=== PATIENT | male | born 1960 | race Caucasian/White ===

== ENCOUNTER 2018-07-26 00:02 | Emergency (ER) | payer BC, MEDICARE ==
[2018-07-26] MEDS ORDERED: KETOROLAC 30 MG/ML 1 ML VIAL IVP STA (00:28)
[2018-07-26] MEDS ORDERED: SODIUM CHLORIDE 0.9% 1,000 ML IV STA (00:28)
--- NOTE | 2018-07-26 00:32 | ED ---
General Adult HPI - General Source: patient Mode of arrival: wheelchair Limitations: no limitations <Ida Woody - Last Filed: 07/26/18 04:37> <Evette Bosch - Last Filed: 07/26/18 07:19> - General Chief complaint: Urogenital Stated complaint: Groin Pain Time Seen by Provider: 07/26/18 00:18 - History of Present Illness Initial comments: 57-year-old male patient presents to the emergency department today with complaints of left groin pain that radiates into the back. The patient states this is been going on for the last 3 days. States that the pain is constant. States it is severe. Does hurt worse with movement and pressing over the area. Patient denies any radiation of pain to the testicle. Denies any scrotal swelling. Denies any difficulty with urination including hematuria, dysuria, urinary urgency, or urinary frequency. Patient denies any nausea, vomiting, constipation, or diarrhea. Denies any fevers or chills with this. Denies any history of similar symptoms. States that he does have history of chronic low back pain but hasn't had pain medication for the last couple of years due to insurance reasons. States his usual back pain is different than this. Patient denies any recent rash, shortness breath, chest pain, numbness, tingling, dizziness, weakness, headache, visual changes, or any other complaints. (Ida Woody) - Related Data Home Medications Medication Instructions Recorded Confirmed ALPRAZolam [Xanax] 0.5 mg PO DAILY PRN 03/27/15 07/26/18 Metoprolol Tartrate [Lopressor] 50 mg PO BID 03/27/15 07/26/18 Simvastatin [Zocor] 40 mg PO HS 03/27/15 07/26/18 tiZANidine HCL 2 mg PO DAILY 03/27/15 07/26/18 Previous Rx's Medication Instructions Recorded Cyclobenzaprine [Flexeril] 10 mg PO TID #15 tab 07/26/18 Ibuprofen [Motrin] 600 mg PO Q8HR PRN #30 tab 07/26/18 Metoprolol Tartrate [Lopressor] 50 mg PO BID #60 tab 07/26/18 Allergies Allergy/AdvReac Type Severity Reaction Status Date / Time No Known Allergies Allergy Verified 03/27/15 09:55 Review of Systems ROS Other: All systems not noted in ROS Statement are negative. <Ida Woody M - Last Filed: 07/26/18 04:37> ROS Other: All systems not noted in ROS Statement are negative. <HiroEvette P - Last Filed: 07/26/18 07:19> ROS Statement: Those systems with pertinent positive or pertinent negative responses have been documented in the HPI. Past Medical History Past Medical History: Hyperlipidemia, Hypertension Additional Past Medical History / Comment(s): chronic back pain History of Any Multi-Drug Resistant Organisms: None Reported Past Surgical History: Orthopedic Surgery Additional Past Surgical History / Comment(s): shoulder surgery Past Psychological History: Bipolar, Depression, Panic Disorder Smoking Status: Current every day smoker Past Alcohol Use History: Rare Past Drug Use History: None Reported <Ida Woody M - Last Filed: 07/26/18 04:37> General Exam Limitations: no limitations General appearance: alert, in no apparent distress, other (This is a well- developed, well-nourished adult male patient in no acute distress. Vital signs upon presentation are temperature 98.5F, pulse 86, respirations 20, blood pressure 176/114, pulse ox 96% on room air.) Eye exam: Present: normal appearance, PERRL, EOMI. Absent: scleral icterus, conjunctival injection, periorbital swelling ENT exam: Present: normal exam, normal oropharynx, mucous membranes moist Respiratory exam: Present: normal lung sounds bilaterally. Absent: respiratory distress, wheezes, rales, rhonchi, stridor Cardiovascular Exam: Present: regular rate, normal rhythm, normal heart sounds. Absent: systolic murmur, diastolic murmur, rubs, gallop, clicks GI/Abdominal exam: Present: soft, tenderness (Mild generalized tenderness, left inguinal tenderness. ), normal bowel sounds, other (No inguinal lymphadenopathy ). Absent: distended, guarding, rebound, rigid, mass, hernia Neurological exam: Present: alert, oriented X3, CN II-XII intact Psychiatric exam: Present: normal affect, normal mood Skin exam: Present: warm, dry, intact, normal color. Absent: rash <Ida Woody - Last Filed: 07/26/18 04:37> Vital Signs 07/26/18 07/26/1818 00:10 02:03 02:04 Temperature 98.5 F Pulse Rate 86 76 Respiratory 20 16 Rate Blood Pressure 176/114 191/107 O2 Sat by Pulse 96 98 Oximetry 07/26/18 07/26/18 07/26/18 02:55 03:19 03:49 Temperature Pulse Rate 76 80 Respiratory 18 16 Rate Blood Pressure 187/112 195/113 177/105 O2 Sat by Pulse 95 96 Oximetry 07/26/18 07/26/18 04:25 04:40 Temperature 98.4 F Pulse Rate 73 82 Respiratory 16 18 Rate Blood Pressure 154/108 139/82 O2 Sat by Pulse 97 96 Oximetry Medical Decision Making - Lab Data Result diagrams: 07/26/18 00:45 07/26/18 00:45 - Radiology Data Radiology results: report reviewed, image reviewed <Ida Woody - Last Filed: 07/26/18 04:37> - Lab Data Result diagrams: 07/26/18 00:45 07/26/18 00:45 <Evette Bosch - Last Filed: 07/26/18 07:19> - Medical Decision Making 57-year-old male patient presented to the emergency department today for complaints of left groin pain. Patient denied any testicular pain or swelling. Physical examination did reveal some mild generalized abdominal tenderness with more exquisite tenderness over the left groin. Patient did have increase in pain with movement of the left leg. There is no spinal tenderness or paraspinal tenderness. Abdomen was soft. Labs reviewed and are unremarkable. CT abdomen and pelvis was obtained and showed no evidence of acute injury abdominal abnormalities. Showed no cause for left groin pain. Patient is afebrile. Patient was quite hypertensive in the department. States he does have a history of hypertension but has not had this medication for a year because of insurance reasons. He was given antihypertensive medication here in the department, blood pressure came down nicely. He'll be given a prescription for metoprolol 50 mg twice daily, he was instructed to get this at [facility] where he can obtain a prescription for $4. He is instructed to [facility] for further medical evaluation and further prescribing of his medications. Patient symptoms are consistent with lumbar radiculopathy and he will be treated with ibuprofen and muscle relaxers. He is educated regarding ice, heat, and gentle range of motion. Return parameters discussed in detail. He verbalizes understanding and agrees with this plan. (Ida Woody) I was available for consultation in the emergency department. The history and physical exam were done by the midlevel provider. I was consulted for this patient's care. I reviewed the case with the midlevel provider and based on their presentation of the patient, I agree with the assessment, medical decision making and plan of care as documented. (Evette Bosch) - Lab Data Lab Results 07/26/18 07/26/18 07/26/18 Range/Units 00:45 00:45 00:45 WBC 7.7 (3.8-10.6) k/uL RBC 5.68 (4.30-5.90) m/uL Hgb 17.1 (13.0-17.5) gm/dL Hct 51.5 (39.0-53.0) % MCV 90.8 (80.0-100.0) fL MCH 30.2 (25.0-35.0) pg MCHC 33.3 (31.0-37.0) g/dL RDW 13.7 (11.5-15.5) % Plt Count 109 L (150-450) k/uL Neutrophils % 60 % Lymphocytes % 27 % Monocytes % 8 % Eosinophils % 2 % Basophils % 1 % Neutrophils # 4.6 (1.3-7.7) k/uL Lymphocytes # 2.1 (1.0-4.8) k/uL Monocytes # 0.6 (0-1.0) k/uL Eosinophils # 0.2 (0-0.7) k/uL Basophils # 0.1 (0-0.2) k/uL Sodium 139 (137-145) mmol/L Potassium 4.1 (3.5-5.1) mmol/L Chloride 107 (98-107) mmol/L Carbon Dioxide 22 (22-30) mmol/L Anion Gap 10 mmol/L BUN 12 (9-20) mg/dL Creatinine 0.90 (0.66-1.25) mg/dL Est GFR (CKD-EPI)AfAm >90 (>60 ml/min/1.73 sqM) Est GFR (CKD-EPI)NonAf >90 (>60 ml/min/1.73 sqM) Glucose 95 (74-99) mg/dL Plasma Lactic Acid Suresh 1.0 (0.7-2.0) mmol/L Calcium 9.5 (8.4-10.2) mg/dL Total Bilirubin 0.4 (0.2-1.3) mg/dL AST 23 (17-59) U/L ALT 36 (21-72) U/L Alkaline Phosphatase 62 (38-126) U/L Total Protein 7.5 (6.3-8.2) g/dL Albumin 4.4 (3.5-5.0) g/dL Amylase 52 (30-110) U/L Lipase 77 (23-300) U/L Urine Color Urine Appearance (Clear) Urine pH (5.0-8.0) Ur Specific [place] (1.001-1.035) Urine Protein (Negative) Urine Glucose (UA) (Negative) Urine Ketones (Negative) Urine Blood (Negative) Urine Nitrite (Negative) Urine Bilirubin (Negative) Urine Urobilinogen (<2.0) mg/dL Ur Leukocyte Esterase (Negative) Urine RBC (0-5) /hpf Urine WBC (0-5) /hpf Urine Mucus (None) /hpf 07/26/18 Range/Units 02:40 WBC (3.8-10.6) k/uL RBC (4.30-5.90) m/uL Hgb (13.0-17.5) gm/dL Hct (39.0-53.0) % MCV (80.0-100.0) fL MCH (25.0-35.0) pg MCHC (31.0-37.0) g/dL RDW (11.5-15.5) % Plt Count (150-450) k/uL Neutrophils % % Lymphocytes % % Monocytes % % Eosinophils % % Basophils % % Neutrophils # (1.3-7.7) k/uL Lymphocytes # (1.0-4.8) k/uL Monocytes # (0-1.0) k/uL Eosinophils # (0-0.7) k/uL Basophils # (0-0.2) k/uL Sodium (137-145) mmol/L Potassium (3.5-5.1) mmol/L Chloride (98-107) mmol/L Carbon Dioxide (22-30) mmol/L Anion Gap mmol/L BUN (9-20) mg/dL Creatinine (0.66-1.25) mg/dL Est GFR (CKD-EPI)AfAm (>60 ml/min/1.73 sqM) Est GFR (CKD-EPI)NonAf (>60 ml/min/1.73 sqM) Glucose (74-99) mg/dL Plasma Lactic Acid Suresh (0.7-2.0) mmol/L Calcium (8.4-10.2) mg/dL Total Bilirubin (0.2-1.3) mg/dL AST (17-59) U/L ALT (21-72) U/L Alkaline Phosphatase (38-126) U/L Total Protein (6.3-8.2) g/dL Albumin (3.5-5.0) g/dL Amylase (30-110) U/L Lipase (23-300) U/L Urine Color Yellow Urine Appearance Clear (Clear) Urine pH 5.5 (5.0-8.0) Ur Specific [place] 1.020 (1.001-1.035) Urine Protein Negative (Negative) Urine Glucose (UA) Negative (Negative) Urine Ketones Negative (Negative) Urine Blood Trace H (Negative) Urine Nitrite Negative (Negative) Urine Bilirubin Negative (Negative) Urine Urobilinogen 2.0 (<2.0) mg/dL Ur Leukocyte Esterase Negative (Negative) Urine RBC 6 H (0-5) /hpf Urine WBC 2 (0-5) /hpf Urine Mucus Rare H (None) /hpf - Radiology Data CT abdomen and pelvis with contrast was obtained. Report was reviewed in its entirety. Impression by Dr. Sidhu shows mild sigmoid diverticulosis without diverticulitis. No sign of acute abdomen and pelvis. Normal appendix. Did not see across her left cramping. (Ida Woody) Disposition Is patient prescribed a controlled substance at d/c from ED?: No Time of Disposition: 03:45 <Ida Woody - Last Filed: 07/26/18 04:37> <Evette Bosch - Last Filed: 07/26/18 07:19> Clinical Impression: Hypertension, Groin pain, Lumbar radiculopathy Disposition: HOME SELF-CARE Condition: Good Instructions: Lumbar Radiculopathy (ED), Hypertension (ED), Groin Pain (ED) Additional Instructions: Take medications as directed. Follow up with your primary care physician for recheck in 1-2 days. Return immediately for any new, worsening, or concerning symptoms. Prescriptions: Cyclobenzaprine [Flexeril] 10 mg PO TID #15 tab Ibuprofen [Motrin] 600 mg PO Q8HR PRN #30 tab PRN Reason: Pain Metoprolol Tartrate [Lopressor] 50 mg PO BID #60 tab Referrals: Zofia Mariee MD [Primary Care Provider] - 1-2 days
[2018-07-26 01:08] LABS: Basophils # (A) 0.1 k/uL (0-0.2); Basophils % (A) 1 %; Eosinophils # (A) 0.2 k/uL (0-0.7); Eosinophils % (A) 2 %; HCT 51.5 % (39.0-53.0); HGB 17.1 gm/dL (13.0-17.5); Lymphocytes # (A) 2.1 k/uL (1.0-4.8); Lymphocytes % (A) 27 %; MCH 30.2 pg (25.0-35.0); MCHC 33.3 g/dL (31.0-37.0); MCV 90.8 fL (80.0-100.0); Mean Platelet Volume 10.4; Monocytes # (A) 0.6 k/uL (0-1.0); Monocytes % (A) 8 %; Neutrophils # (A) 4.6 k/uL (1.3-7.7); Neutrophils % (A) 60 %; Platelet Count 109 k/uL (150-450); RBC 5.68 m/uL (4.30-5.90); RDW 13.7 % (11.5-15.5); WBC 7.7 k/uL (3.8-10.6)
[2018-07-26 01:14] LABS: ALT 36 U/L (21-72); AST 23 U/L (17-59); Albumin 4.4 g/dL (3.5-5.0); Alkaline Phosphatase 62 U/L (38-126); Amylase 52 U/L (30-110); Anion Gap 10 mmol/L; Blood Urea Nitrogen 12 mg/dL (9-20); Calcium 9.5 mg/dL (8.4-10.2); Carbon Dioxide 22 mmol/L (22-30); Chloride 107 mmol/L (98-107); Glucose 95 mg/dL (74-99); Lipase 77 U/L (23-300); Potassium 4.1 mmol/L (3.5-5.1); Sodium 139 mmol/L (137-145); Total Bilirubin 0.4 mg/dL (0.2-1.3); Total Protein 7.5 g/dL (6.3-8.2)
[2018-07-26] MEDS ORDERED: MORPHINE SULFATE 4 MG/ML SYRINGE IVP STA ×2 (01:41→03:46)
[2018-07-26] MEDS ORDERED: ENALAPRILAT 1.25 MG/ML 1 ML VIAL IVP STA (02:20)
--- NOTE | 2018-07-26 03:09 | CT ---
EXAMINATION TYPE: CT abdomen pelvis w con DATE OF EXAM: 07/26/2018 COMPARISON: None HISTORY: No prior, left groin lutz that radiates to the back CT DLP: 1171.30 mGycm Automated exposure control for dose reduction was used. TECHNIQUE: Helical acquisition of images was performed from the lung bases through the pelvis. CONTRAST: Performed without Oral Contrast and with IV Contrast, patient injected with 100 mL of Isovue 300. FINDINGS: Lung bases are clear. Heart size is normal. There is no pericardial effusion. There is no pleural eff usion. Stomach appears normal. Liver spleen pancreas gallbladder appear normal. Bile ducts are not di lated. There is no adrenal mass. Kidneys show satisfactory contrast opacification. There is no hydronephrosi s. There is normal contrast excretion. Ureters are not dilated. There is no retroperitoneal adenopath y. There is no mesenteric adenopathy or edema. There are multiple sigmoid diverticula. There is prostati c calcification. Bladder distends smoothly. Appendix appears normal. I see no intestinal wall thicken ing. There are no dilated loops. There is no evidence of free air. There is no ascites. There is smal l posterior disc herniation at L4-5 and L5-S1. Lumbar spine is intact. The bony pelvis appears intact . There is no inguinal hernia. There is small umbilical hernia that contains fat. Abdominal soft tiss ues are unremarkable. IMPRESSION: MILD SIGMOID DIVERTICULOSIS WITHOUT DIVERTICULITIS. NO SIGN OF ACUTE ABDOMEN AND PELVIS. NORMAL APPEN RADHA. I DO NOT SEE A CAUSE FOR LEFT GROIN PAIN.
[2018-07-26 03:17] LABS: Appearance,Urine Clear (Clear); Bilirubin,Urine Negative (Negative); Blood,Urine Trace (Negative); Color,Urine Yellow; Glucose,Urine (UA) Negative (Negative); Ketones,Urine Negative (Negative); Leukocyte Esterase,Urine Negative (Negative); Mucus,Urine Rare /hpf; Nitrite,Urine Negative (Negative); PH, Urine 5.5 (5.0-8.0); Protein,Urine Negative (Negative); RBC,Urine 6 /hpf (0-5); WBC,Urine 2 /hpf (0-5)
[2018-07-26] MEDS ORDERED: LABETALOL 5 MG/ML VIAL MDV IVP STA (03:48)
[2018-07-26] MEDS ORDERED: ACET/COD 300 MG/30 MG STARTER PACK 6 TAB BTL PO STA (04:36)
[2018-07-26 04:41] VITALS: BP 139/82; PULSE 82; RESP 18; TEMP 98.4
== END 2018-07-26 04:46 | disposition home or self-care (01) ==
LOC: EC 00:02
DX: M54.16 Radiculopathy, lumbar region (principal); R10.32 Left lower quadrant pain; I10 Essential (primary) hypertension; E78.5 Hyperlipidemia, unspecified; M54.9 Dorsalgia, unspecified; G89.29 Other chronic pain; F17.200 Nicotine dependence, unspecified, uncomplicated; Z79.899 Other long term (current) drug therapy
CPT/HCPCS: 36415; 80053; 82150; 83605; 83690; 85025; 81001; 74177; 99284; 96374; 96375 ×3; 96376; 96361 ×3; J2270; J1885; Q9967

== ENCOUNTER → 2020-10-09 | Outpatient (CLI) | payer MEDICARE ==
--- NOTE | 2020-10-09 09:45 | XR ---
EXAMINATION TYPE: XR Hip Bilateral Complete DATE OF EXAM: 10/09/2020 COMPARISON: NONE HISTORY: Pain TECHNIQUE: 2 views submitted FINDINGS: There is no evidence of erosive change or acute fracture. Hypertrophic change of the acetabulum bilaterally. No erosive changes. Calcifications in the pelvis l ikely vascular. IMPRESSION: 1. No evidence of acute fracture or dislocation. 2. Hypertrophic change of the acetabulum correlate for femoral acetabular impingement bilaterally.
== END | disposition home or self-care (01) ==
LOC: RADXRMAIN 08:39
PROVIDERS: ATTEND Anesthesiology
DX: M89.38 Hypertrophy of bone, other site (principal)
CPT/HCPCS: 73521

== ENCOUNTER → 2020-10-09 | Outpatient (CLI) | payer MEDICARE ==
[2020-10-09 08:16] VITALS: BP 158/96; PULSE 67; RESP 18; TEMP 98.4
--- NOTE | 2020-10-09 08:37 | P.CONS ---
History of Present Illness - Reason for Consult Consult date: 10/09/20 - Chief Complaint Lower back pain - History of Present Illness This is a 60-year-old gentleman with a three-year history of lower back pain with no precipitating events. It occasionally radiates down his legs mostly to the left side down to the left knee with numbness and tingling around the left hip. This pain increases by activity and improves by lying on his stomach. The patient also uses [place] 10 mg 3 times a day for this pain. He occasionally uses weakness in his legs. He denies any loss of control of his bowel or bladder. The pain occasionally wakes him up at night but he denies any weight loss. He smokes one pack of cigarettes a day he did have an injection on his back a few years ago which helped him with his pain and he said this is most likely an epidural injection. He failed to respond to physical therapy previously. He denies any back surgeries. Past Medical History Past Medical History: Hyperlipidemia, Hypertension Additional Past Medical History / Comment(s): chronic back pain History of Any Multi-Drug Resistant Organisms: None Reported Past Surgical History: Orthopedic Surgery Additional Past Surgical History / Comment(s): shoulder surgery Past Anesthesia/Blood Transfusion Reactions: No Reported Reaction Past Psychological History: Bipolar, Depression, Panic Disorder Smoking Status: Current every day smoker Past Alcohol Use History: Rare Past Drug Use History: None Reported Medications and Allergies Home Medications Medication Instructions Recorded Confirmed Type ALPRAZolam [Xanax] 0.5 mg PO DAILY PRN 03/27/15 07/26/18 History Simvastatin [Zocor] 40 mg PO HS 03/27/15 07/26/18 History Cyclobenzaprine [Flexeril] 10 mg PO TID #15 tab 07/26/18 Rx Ibuprofen [Motrin] 600 mg PO Q8HR PRN #30 tab 07/26/18 Rx Metoprolol Tartrate [Lopressor] 50 mg PO BID #60 tab 07/26/18 Rx HYDROcodone/APAP 10-325MG [[place] 1 tab PO Q6HR PRN 10/09/20 10/09/20 History 10-325] methocarbamoL [Robaxin] 1,000 mg PO QID 10/09/20 10/09/20 History Allergies Allergy/AdvReac Type Severity Reaction Status Date / Time No Known Allergies Allergy Verified 03/27/15 09:55 Physical Exam Vitals: Vital Signs Temp Pulse Resp BP Pulse Ox 10/09/20 08:07 98.4 F 67 18 158/96 95 Intake and Output 10/08/20 10/09/20 10/09/20 22:59 06:59 14:59 Other: Weight 99.79 kg - Constitutional General appearance: average body habitus - EENT Eyes: PERRLA - Neurologic Neuro exam of the lower extremities showed normal and symmetrical deep tendon reflexes bilaterally. Decreased knee flexion and extension to 4 out of 5 bilaterally and normal ankle flexion and extension bilaterally. Straight leg raising test mildly positive on the left side. He has tenderness in the lumbar paravertebral musculature bilaterally. Ray's test caused hip pain but no back pain. Internal and external rotation of the hip joints increase his hip pain on both sides. Neurologic: CNII-XII intact Results Results: An MRI on the lumbar spine showed moderate bilateral neural foraminal stenosis at the L4 5 and L5-S1 levels. It also showed lumbar spondylosis with facet arthropathy. Assessment and Plan Plan: This is a 60-year-old gentleman with the following diagnoses: Lumbar spondylosis without myelopathy Lumbar neuroforaminal stenosis at L4 5 and L5-S1 bilaterally. Possible bilateral hip arthritis Tobacco dependence Hypertension Anxiety Opioid dependence Plan: The patient may benefit from getting lumbar epidural steroid injection in the interlaminar approach at the L4 5 level under fluoroscopic guidance. He did have this injection before with good results as he states. The procedure was explained to the patient and his questions were answered I will also send him to have an x-ray on the hip joints to rule out osteoarthritis. I thank you for the referral.
== END | disposition home or self-care (01) ==
LOC: PNWHC3 07:49
PROVIDERS: ATTEND Anesthesiology
DX: M48.07 Spinal stenosis, lumbosacral region (principal); M47.816 Spondylosis without myelopathy or radiculopathy, lumbar region; I10 Essential (primary) hypertension; E78.5 Hyperlipidemia, unspecified; F41.9 Anxiety disorder, unspecified; F17.200 Nicotine dependence, unspecified, uncomplicated; F11.20 Opioid dependence, uncomplicated; Z79.899 Other long term (current) drug therapy
CPT/HCPCS: 99211

== ENCOUNTER 2020-11-07 10:02 | Day surgery (SDC) | payer MEDICARE ==
[2020-11-03 15:31] VITALS: BMI 34.2
[2020-11-07 10:23] VITALS: RESP 17; TEMP 96
[2020-11-07] MEDS ORDERED: methylPREDNISolone ACETATE 40 MG/ML 1 ML VIAL ONE (10:33)
[2020-11-07] MEDS ORDERED: IOPAMIDOL M200 10 ML VIAL ONE (10:33)
--- NOTE | 2020-11-07 10:45 | P.PCN ---
Date of Procedure: 11/07/20 Description of Procedure: PREOPERATIVE DIAGNOSIS: Lumbar radiculopathy POSTOPERATIVE DIAGNOSIS: Same PROCEDURE PERFORMED: Interlaminar Epidural Steroid Injection at the L4-5 level, with a right paramedian approach under fluoroscopic guidance SURGEON: Bryn Sears MD ANESTHESIA: Local with 1% lidocaine Fluoroscopy was used for the procedure and images were saved in the radiology portion of the chart. EBL: Minimal PROCEDURE INDICATION: The patient presents with lumbar radicular symptoms unresponsive to conservative treatment. This is the [first/ second] cervical epidural steroid injection PROCEDURE DESCRIPTION / TECHNIQUE: The patient was seen and identified in the preoperative area. Risks, benefits, complications including but not limited to infections ,bleeding ,allergic reaction to the medications ,nerve damage and incomplete pain relief, and alternatives were discussed with the patient. The patient agreed to proceed with the procedure and signed the consent. IV was started, and vital signs were stable. Patient was taken to the OR and time out was completed. The patient was placed in the prone position on procedure table and a pillow was placed under the chest area. The cervical area was prepped and draped in the usual sterile fashion. Conscious sedation was used during the procedure to decrease patients anxiety. Vital signs was monitored during the entire procedure. Using anterior-posterior fluoroscopy, the [] interlaminar space was identified and the skin over this site was marked and then infiltrated with 1% lidocaine subcutaneously. Subsequently, a 20-gauge Tuohy epidural needle was inserted and advanced toward the epidural space using the loss of resistance technique and guided by AP and lateral views. The correct needle position in the epidural space was verified. After negative aspiration for blood and CSF and in the absence of paresthesias, Isovue 200 2 mL's was injected under live fluoroscopy with good epidural spread. After negative aspiration, a 5 mL mixture containing 40 mg depomedrol, 2 ml PFNS, 2 mL lidocaine 1%. Needle was withdrawn intact, skin was cleansed, and bandages were applied. COMPLICATIONS: None DISPOSITION / PLANS: The patient was placed in a supine position and transferred to the recovery area in a stable condition for observation. There was no evidence of lower extremity motor or sensory deficit after the procedure. Patient was discharged from the recovery room after meeting discharge criteria. Home discharge instructions were given to the patient by the staff. The patient will be scheduled a repeat procedure in the clinic in 2-4 weeks.
[2020-11-07 10:53] VITALS: BP 158/88; PULSE 60
--- NOTE | 2020-11-07 14:17 | FL ---
Fluoroscopy HISTORY: Pain 5 seconds fluoroscopy time supplied to the referring clinician. 2 intraoperative C-arm images docume nt the procedure. See dictated report from anesthesia.
== END 2020-11-07 11:12 | disposition home or self-care (01) ==
LOC: ORPAIN 10:02
PROVIDERS: ATTEND Anesthesiology
DX: M54.16 Radiculopathy, lumbar region (principal)
CPT/HCPCS: 62323; J1030; Q9966

== ENCOUNTER 2020-12-14 11:31 | Day surgery (SDC) | payer MEDICARE ==
[2020-12-12 10:59] VITALS: BMI 34.2
[~2020-12-14 11:31] MED LIST: LACTATED RINGERS 1,000 ML IV SCH
[2020-12-14 12:11] VITALS: PULSE 75; RESP 16; TEMP 96.8
[2020-12-14] MEDS ORDERED: IOPAMIDOL M200 10 ML VIAL ONE (12:49)
[2020-12-14] MEDS ORDERED: methylPREDNISolone ACETATE 40 MG/ML 1 ML VIAL ONE (12:49)
--- NOTE | 2020-12-14 13:00 | P.PCN ---
Date of Procedure: 12/14/20 Procedure(s) Performed: PREOPERATIVE DIAGNOSIS: 1- Lumbar radiculopathy 2-Lumbar spondylosis with Facet arthropathy without myelopathy POSTOPERATIVE DIAGNOSIS: Same as preop diagnosis. PROCEDURE 1. Lumbar epidural steroid injection under fluoroscopic guidance at the L4-5 lev el. (Fluoroscopy imaging was available in radiology department) 2. Lumbar epidurogram. ANESTHESIA: Local with 1% lidocaine 3 ml only. EBL: Minimal PROCEDURE INDICATION: The patient with low back pain and radiculitis symptoms unresponsive to conservative treatment. Fluoroscopy was used to optimize visualization of the needle placement and to maximize safety. PROCEDURE DESCRIPTION / TECHNIQUE: The patient was seen and identified in the preoperative area. Risks, benefits, complications including but not limited to infections ,bleeding ,allergic reaction to the medications ,nerve damage and not complete pain releife , and alternatives were discussed with the patient. The patient agreed to proceed with the procedure and signed the consent., and vital signs were stable. Patient was taken to the OR and time out was completed. The patient was placed in the prone position on procedure table and a pillow was placed under the abdomen to reduce lumbar lordosis. The lumbosacral area was prepped and draped in the usual sterile fashion.ere closely monitored during the procedure. Vital signs was monitered during the entire procedure. Using anterior-posterior fluoroscopy, the L4-5 interlaminar space was identified and the skin over this site was marked and then infiltrated with 1% lidocaine subcutaneously. Subsequently, a 20-gauge Tuohy epidural needle was inserted and advanced toward the epidural space using the ``Loss of resistance technique and guided by AP and lateral fluoroscopy. The correct needle position in the epidural space was verified with the injection of 2 mL of the water soluble contrast dye Isovue 200 contrast and observing an excellent epidurogram with the epidural spread of the dye, after negative aspiration for blood and CSF and in the absence of paresthesias. Again after negative aspiration, a 6 ml mixture containing 80 mg of Depo-medrol , and 2 ml of preservative free Normal Saline, and 2 ml of preservative free lidocaine 1% solution was injected and a washout of epidurogram was seen. Needle was withdrawn intact, skin was cleansed, and bandages were applied. COMPLICATIONS: None DISPOSITION / PLANS: The patient was placed in a supine position and transferred to the recovery area in a stable condition for observation. There was no evidence of lower extremity motor or sensory deficit after the procedure. Patient was discharged from the recovery room after meeting discharge criteria. Home discharge instructions were given to the patient by the staff. The patient was reexamined prior to discharge. The patient will schedule a follow up in the clinic in 2-4 weeks.
[2020-12-14 13:28] VITALS: BP 153/95
--- NOTE | 2020-12-15 09:47 | FL ---
Fluoroscopy HISTORY: Pain 1 seconds fluoroscopy time supplied to the referring clinician. intraoperative C-arm images document the procedure. See dictated report from anesthesia.
== END 2020-12-14 13:30 | disposition home or self-care (01) ==
LOC: ORPAIN 11:31
PROVIDERS: ATTEND Specialist
DX: M47.26 Other spondylosis with radiculopathy, lumbar region (principal); M51.16 Intervertebral disc disorders with radiculopathy, lumbar region
CPT/HCPCS: 62323; J1030; Q9966

== ENCOUNTER → 2021-01-01 | Outpatient (CLI) | payer MEDICARE ==
[2021-01-01 12:29] VITALS: BP 156/101; PULSE 66; RESP 16; TEMP 97.5
--- NOTE | 2021-01-01 12:38 | P.PN ---
Subjective Progress Note Date: 01/01/21 This is a 60-year-old gentleman who used to be a [employer] truck driver with history of chronic lower back pain with radiation to the knees bilaterally. The patient had lumbar epidural steroid injection with history of neuroforaminal stenosis with numbness and tingling in the thighs anteriorly however he had only very mild pain relief. The patient also feels pain and muscle spasm as he states in the left chest wall area with tenderness to palpation. Patient denies new-onset weakness, bowel/bladder incontinence, or any other signs or symptoms of cauda equina syndrome. There are no signs of acute intoxication, and no indications of medication diversion or overuse. In addition to above, 13-point review of systems is also negative for chest pain, shortness of breath, changes in vision, changes in hearing, new onset weakness, abdominal pain, diarrhea, extreme fatigue, malaise, fever, skin changes, homicidal or suicidal ideation, or bowel or bladder incontinence. Vital Signs: Reviewed in EMR Gen: AAOx3, NAD HEENT: PERRLA,hearing grossly normal Pulm: resp unlabored Neck: supple, trachea midline Neuro exam of the lower extremities: Normal muscle strength bilaterally Straight leg raising test: Negative bilaterally Ray's test: Range of motion of the lumbar spine: Facet loading test: Positive in the lumbar area bilaterally Tenderness in the paravertebral musculature: Positive on the lumbar paravertebral musculature Tenderness on the left rib cage Neuro: CN II-XII grossly intact, Imaging: Reviewed in EMR/chart Assessment: Lumbar spondylosis without myelopathy Lumbar neuroforaminal stenosis Tobacco dependence Anterior wall chest pain on the left side Plan: 1. Explanation: Opioid and psychological risk scores were reviewed. Diagnoses, prognoses, and multiple treatment options including but not limited to physical therapy, interventional therapies, adjuvant medical therapies, narcotic medication therapies, and surgery were discussed with the patient and all questions were answered to the patient's satisfaction. 2. Opioid agreement: Signed with the patient and the patient is warned not to use opioids while driving or before driving and not to combine opioids with benzodiazepines or alcohol. 3. Counseling: The patient was counseled extensively on SMOKING CESSATION, BODY MASS INDEX, EXERCISE. Specifically, the patient was instructed regarding the importance of smoking cessation, obesity, and exercise in the context of both chronic pain and overall health. 4. Procedures: Schedule for a diagnostic lumbar medial branch block under fluoroscopic guidance bilaterally for levels L4 5 and L5-S1 5. Consultations: None 6. Investigations: Jak the patient to have a chest x-ray AP and lateral 7. Medications: None 8. Disposition: Return to the above-mentioned procedure as soon as possible 9. Maps were reviewed and were appropriate. Objective - Vital Signs Vital signs: Vital Signs Temp 97.5 F L 01/01/21 12:27 Pulse 66 01/01/21 12:27 Resp 16 01/01/21 12:27 BP 156/101 01/01/21 12:27 Pulse Ox 98 01/01/21 12:27
== END ==
LOC: PNWHC3 12:10
PROVIDERS: ATTEND Anesthesiology
DX: M47.816 Spondylosis without myelopathy or radiculopathy, lumbar region (principal); M48.061 Spinal stenosis, lumbar region without neurogenic claudication; R07.89 Other chest pain; F17.200 Nicotine dependence, unspecified, uncomplicated
CPT/HCPCS: 99211

== ENCOUNTER → 2021-01-01 | Outpatient (CLI) | payer MEDICARE ==
--- NOTE | 2021-01-01 13:24 | XR ---
EXAMINATION TYPE: XR chest 2V DATE OF EXAM: 01/01/2021 COMPARISON: NONE HISTORY: Shortness of breath TECHNIQUE: Frontal and lateral views of the chest are obtained. FINDINGS: Scattered senescent parenchymal changes noted. No evidence for infiltrate. No evidence for atelectasis. Heart size is stable. Mediastinal structures are stable and grossly unremarkable. No evidence for hilar prominence. Degenerative changes dorsal spine. IMPRESSION: 1. No evidence for acute pulmonary disease.
== END | disposition home or self-care (01) ==
LOC: RADXRMAIN 12:51
PROVIDERS: ATTEND Anesthesiology
DX: R06.02 Shortness of breath (principal)
CPT/HCPCS: 71046

== ENCOUNTER 2021-01-26 08:46 | Day surgery (SDC) | payer MEDICARE ==
[2021-01-26 09:42] VITALS: RESP 16; TEMP 96.5
[2021-01-26] MEDS ORDERED: LACTATED RINGERS 1,000 ML IV ONE (09:46)
[2021-01-26] MEDS ORDERED: LIDOCAINE 1% (10MG/ML) FOR IV START INTRADERMA ONE (09:47)
[2021-01-26] MEDS ORDERED: FAMOTIDINE 20 MG/2 ML VIAL IVP ONE (09:49)
[2021-01-26] MEDS ORDERED: MIDAZOLAM 2 MG/2 ML VIAL ONE (10:28)
[2021-01-26] MEDS ORDERED: fentaNYL (PF) 50 MCG/ML 2 ML AMP ONE (10:28)
[2021-01-26] MEDS ORDERED: IOPAMIDOL M200 10 ML VIAL ONE (10:29)
[2021-01-26] MEDS ORDERED: ROPIVACAINE 5MG/ML 20ML VIAL ONE (10:29)
[2021-01-26] MEDS ORDERED: TRIAMCINOLONE ACETONIDE 40 MG/ML 1 ML VIAL ONE (10:29)
--- NOTE | 2021-01-26 10:45 | P.PCN ---
Date of Procedure: 01/26/21 Description of Procedure: PREOPERATIVE DIAGNOSIS : Lumbar spondylosis with Facet Arthropathy without myelopathy POSTOPERATIVE DIAGNOSIS: same PROCEDURE: first Diagnostic lumbar medial branch block with fluoroscopy at L3, L4, L5 [bilateral] which covers facets L4-5 and L5-S1 ANESTHESIA: Local anesthetic; moderate IV sedation by anesthesia team Fluoroscopy was used for the procedure and images were saved in the radiology portion of the chart. Surgeon: Bryn Sears MD PROCEDURE INDICATION: Lumbar back pain without radiculopathy, not responsive to conservative management. PROCEDURE DESCRIPTION: the patient was seen and identified in the preop holding area , risks and benefits and possible complications of the procedure and alternatives were discussed with the patient, and the patient agreed to proceed with the procedure and signed the consent . IV was started , vital signs were monitored during the procedure and fluoroscopy was used to maximize the benefit and accuracy of the needle placement, and sedation was given to decrease patient anxiety. Patient was taken to the procedure room and placed in prone position. The lumbar region was prepped using chlorhexidineX-2. Under strict sterile technique using AP fluoroscopy the bilateral sacral ala were identified and using ipsilateral oblique fluoroscopy ,the junction of the transverse process and the superior articulating process of the L4, L5 vertebra which corresponds to the fluoroscopy image of the eye of the Tommy dog for the medial branches were identified. Subsequently, after local infiltration of skin with lidocaine 1% 0.2 mL at each level , a 25-gauge 3.5" Quincke-type needle was placed at the junction of the base of the transverse process and the superior articular process at the appropriate level as well as the sacral ala, and the needle was advanced until the periosteum contacted, needle placement confirmed with AP and oblique fluoroscopy, 0.2 mL of Isovue 200 per level was injected which revealed no vascular uptake and after negative aspiration. I cas up 5 mL of 0.5% ropivacaine and 1 mL of 40 mg/mL kenalog and injected 1 mL of this injectate at each level and the needle subsequently removed . A total of [2 levels injected bilaterally] At the end of the procedure and the needles were removed and a bandage applied after the skin was cleaned. The patient was taken to recovery room in stable condition and monitors in the recovery room for 20-30 minutes and discharged home in stable condition after discharge criteria met and patient will follow up in clinic in 2 weeks EBL: Minimal COMPLICATION: None.
[2021-01-26] MEDS ORDERED: IV FLUID CONTINUATION 1,000 ML IV ONE (10:48)
[2021-01-26 11:05] VITALS: BP 162/84; PULSE 64
--- NOTE | 2021-01-26 11:51 | FL ---
Fluoroscopy HISTORY: Pain 6 seconds fluoroscopy time supplied to the referring clinician. 3 intraoperative C-arm images docume nt the procedure. See dictated report from anesthesia.
== END 2021-01-26 11:15 | disposition home or self-care (01) ==
LOC: ORPAIN 08:46
PROVIDERS: ATTEND Anesthesiology
DX: M47.816 Spondylosis without myelopathy or radiculopathy, lumbar region (principal); I10 Essential (primary) hypertension; E78.5 Hyperlipidemia, unspecified; F17.210 Nicotine dependence, cigarettes, uncomplicated; Z79.899 Other long term (current) drug therapy
CPT/HCPCS: 64493; 64494; J2250; J3301; J3010; Q9966; J2795

== ENCOUNTER 2021-03-09 11:17 | Day surgery (SDC) | payer MEDICARE ==
[2021-03-07 13:41] VITALS: BMI 34.4
[~2021-03-09 11:17] MED LIST changes: -LACTATED RINGERS 1,000 ML IV SCH; +ROPIVACAINE 5MG/ML 20ML VIAL ONE; +TRIAMCINOLONE ACETONIDE 40 MG/ML 1 ML VIAL ONE
[2021-03-09 11:41] VITALS: RESP 16; TEMP 97.9
[2021-03-09] MEDS ORDERED: LACTATED RINGERS 1,000 ML IV ONE (11:45)
[2021-03-09] MEDS ORDERED: IOPAMIDOL M200 10 ML VIAL ONE (12:57)
[2021-03-09] MEDS ORDERED: MIDAZOLAM 2 MG/2 ML VIAL ONE (12:57)
[2021-03-09] MEDS ORDERED: ROPIVACAINE 5MG/ML 20ML VIAL ONE (12:57)
[2021-03-09] MEDS ORDERED: fentaNYL (PF) 50 MCG/ML 2 ML AMP ONE (12:57)
[2021-03-09] MEDS ORDERED: TRIAMCINOLONE ACETONIDE 40 MG/ML 1 ML VIAL ONE (12:57)
--- NOTE | 2021-03-09 13:10 | P.PCN ---
Date of Procedure: 03/09/21 Description of Procedure: PREOPERATIVE DIAGNOSIS : Lumbar spondylosis with Facet Arthropathy without myelopathy POSTOPERATIVE DIAGNOSIS: same PROCEDURE: first Diagnostic lumbar medial branch block with fluoroscopy at L3, L4, L5 [bilateral] which covers facets L4-5 and L5-S1 #2 ANESTHESIA: Local anesthetic; moderate IV sedation by anesthesia team Fluoroscopy was used for the procedure and images were saved in the radiology portion of the chart. Surgeon: Bryn Sears MD PROCEDURE INDICATION: Lumbar back pain without radiculopathy, not responsive to conservative management. PROCEDURE DESCRIPTION: the patient was seen and identified in the preop holding area , risks and benefits and possible complications of the procedure and alternatives were discussed with the patient, and the patient agreed to proceed with the procedure and signed the consent . IV was started , vital signs were monitored during the procedure and fluoroscopy was used to maximize the benefit and accuracy of the needle placement, and sedation was given to decrease patient anxiety. Patient was taken to the procedure room and placed in prone position. The lumbar region was prepped using chlorhexidineX-2. Under strict sterile technique using AP fluoroscopy the bilateral sacral ala were identified and using ipsilateral oblique fluoroscopy ,the junction of the transverse process and the superior articulating process of the L4, L5 vertebra which corresponds to the fluoroscopy image of the eye of the Tommy dog for the medial branches were identified. Subsequently, after local infiltration of skin with lidocaine 1% 0.2 mL at each level , a 25-gauge 3.5" Quincke-type needle was placed at the junction of the base of the transverse process and the superior articular process at the appropriate level as well as the sacral ala, and the needle was advanced until the periosteum contacted, needle placement confirmed with AP and oblique fluoroscopy, 0.2 mL of Isovue 200 per level was injected which revealed no vascular uptake and after negative aspiration. I cas up 5 mL of 0.5% ropivacaine and 1 mL of 40 mg/mL kenalog and injected 1 mL of this injectate at each level and the needle subsequently removed . A total of [2 levels injected bilaterally] At the end of the procedure and the needles were removed and a bandage applied after the skin was cleaned. The patient was taken to recovery room in stable condition and monitors in the recovery room for 20-30 minutes and discharged home in stable condition after discharge criteria met and patient will follow up in clinic in 2 weeks EBL: Minimal COMPLICATION: None.
[2021-03-09] MEDS ORDERED: IV FLUID CONTINUATION 100 ML IV ONE (13:19)
[2021-03-09 13:34] VITALS: BP 151/100; PULSE 70
--- NOTE | 2021-03-09 13:45 | FL ---
Fluoroscopy HISTORY: Pain 8 seconds fluoroscopy time supplied to the referring clinician. 3 intraoperative C-arm images docume nt the procedure. See dictated report from anesthesia.
== END 2021-03-09 13:47 ==
LOC: ORPAIN 11:17
PROVIDERS: ATTEND Anesthesiology
DX: M47.816 Spondylosis without myelopathy or radiculopathy, lumbar region (principal); I10 Essential (primary) hypertension; E78.5 Hyperlipidemia, unspecified; F17.210 Nicotine dependence, cigarettes, uncomplicated; Z97.2 Presence of dental prosthetic device (complete) (partial); Z79.1 Long term (current) use of non-steroidal anti-inflammatories (NSAID); Z79.891 Long term (current) use of opiate analgesic; Z79.899 Other long term (current) drug therapy
CPT/HCPCS: 64493; 64494; J2250; J3301; J3010; Q9966; J2795

== ENCOUNTER → 2021-04-02 | Outpatient (CLI) | payer MEDICARE ==
[2021-04-02 12:30] VITALS: BP 142/92; PULSE 71; RESP 18; TEMP 98.5
--- NOTE | 2021-04-02 13:10 | P.PN ---
Subjective Progress Note Date: 04/02/21 This is a follow-up visit for this 60 years old male with a chronic history of severe low back pain, he is diagnosed with lumbar spondylosis and lumbar facet arthropathy and lumbar degenerative disc disease with foraminal stenosis, previously we have done lumbar epidural steroid injections patient had minimal benefit from it and recently we did diagnostic medial branch block lumbar area at L3, L4, L5, bilaterally patient reported that he had only 30% improvement of his pain from the medial branch block, for this reason the patient is not a candidate to have RFA of the medial branch, currently patient reported that his pain mostly in the low back area with radiation to the right buttock, he denies any motor or sensory deficit he denies any fever or night sweats and no change in the bowel movement or urination Objective - Vital Signs Vital signs: Vital Signs Temp 98.5 F 04/02/21 12:26 Pulse 71 04/02/21 12:26 Resp 18 04/02/21 12:26 BP 142/92 04/02/21 12:26 Pulse Ox 95 04/02/21 12:26 Intake & Output 04/01/21 04/02/21 04/02/21 18:59 06:59 18:59 Weight 103.873 kg - Exam Physical Examinations : -Constitutiona : Cooperative , not in acute distress . -HEENT : nech : supple , no Lymphadenopathy , normal thyroid size . : eyes : no ptosis , no icterus, no photo phobia . - neurologic : Cranial nerve II to XII intact , no focal neurological deffecit . -psychatric : alert , oriented X 3 , appropriate affect , intact judgment and insight . -Lymphatic : no Lymphadenopathy . - musculoskeltal : . Lumber spine moter stegnth lower extremities ,thigh and legs 5/5 Right side , 5/5 Left side deep tendon reflexes : normal Knee Jerk , normal ankle Jerk lumber facet Loading Test =positive Right , positive Left Range of motion of the lumbar spine Flexion 30 degrees, extension 10 degrees strait leg raising test = positive at 45 degree on the right side Fabere test= positive Right , and negative LT . Sever tenderness over the Sacroiliac joint on the Right. Gaenslen test= positive right . Seated flexion test= positive right . Distraction test= positive right Assessment and Plan Plan: Assessment and plan=1-lumbar spondylosis with lumbar facet arthropathy. 2-lumbar degenerative disc disease. 3-lumbar foraminal stenosis. 4-right sacroiliitis. he had no benefit from lumbar epidural steroid injection, patient had negative response to medial branch block. he could benefit from right-sided sacroiliac joint steroid injection with fluoroscopy guidance he would be referred to a spine surgeon for evaluation. - PQRS measures = - Patient's medications are documented in the chart. -Tobacco use is positive and counseling.Given. -Patient's has not received pneumococcal vaccine. -Advanced care planning discussed, patient not eligible. -Opiate contract not signed. -Pain positive and follow-up visit/procedure is scheduled. -Patient's blood pressure measured [ 148/92 ] , and documented in the record ,and patient will follow up with the primary care. -Patient's weight was measured and body mass index [35.9 ] above the normal limits and counseling was done. and patient instructed to follow-up with the primary care physician. -Patient was not identified as an unhealthy alcohol user Time with Patient: Less than 30
== END | disposition home or self-care (01) ==
LOC: PNWHC3 11:38
PROVIDERS: ATTEND Specialist
DX: M47.816 Spondylosis without myelopathy or radiculopathy, lumbar region (principal); M48.061 Spinal stenosis, lumbar region without neurogenic claudication; M51.36 Other intervertebral disc degeneration, lumbar region; M46.1 Sacroiliitis, not elsewhere classified; F17.200 Nicotine dependence, unspecified, uncomplicated
CPT/HCPCS: 99211

== ENCOUNTER 2021-04-24 08:06 | Day surgery (SDC) | payer MEDICARE ==
[2021-04-23 10:44] VITALS: BMI 34.4
[2021-04-24 08:30] VITALS: RESP 16; TEMP 96.8
[2021-04-24] MEDS ORDERED: LACTATED RINGERS 1,000 ML IV ONE (08:34)
[2021-04-24] MEDS ORDERED: IOPAMIDOL M200 10 ML VIAL ONE (09:10)
[2021-04-24] MEDS ORDERED: ROPIVACAINE 5MG/ML 20ML VIAL ONE (09:10)
[2021-04-24] MEDS ORDERED: TRIAMCINOLONE ACETONIDE 40 MG/ML 1 ML VIAL ONE (09:10)
[2021-04-24] MEDS ORDERED: MIDAZOLAM 2 MG/2 ML VIAL ONE (09:10)
--- NOTE | 2021-04-24 09:10 | P.PCN ---
Date of Procedure: 04/24/21 Description of Procedure: Preoperative diagnoses: 1. Lumbosacral Spondylosis 2. Bilateral sacroiliitis. Postoperative diagnoses: Same as preoperative diagnosis. Procedure: Right sacroiliac joint steroid injection under fluoroscopic guidance. (Fluoroscopic image was saved and stored) Surgeon: Edd Summers M.D. Anesthesia: Conscious sedation with Versed 2 mg and fentanyl 100 micrograms and local infiltration with lidocaine 1% 4 ml EBL: None Procedure indication: The patient had a history of severe chronic low back pain, diagnosed with sacroiliitis and lumbar sacral facet arthropathy unresponsive to conservative treatment. Procedure description: The patient was seen and identified in the preoperative holding area, risks and benefits and alternative of the procedure and possible complications discussed with the patient, and he agreed with the preceding, patient signed the consent, an IV was started, and vital signs were monitored and were stable throughout the procedure, patient was placed in the prone position or table and the lumbosacral area was prepped and draped with a sterile fashion, vital signs were closely monitored during the procedure, the fluoroscopy camera was placed in the contralateral oblique view on the right sacroiliac joint and the lower part of the joint was identified a 2 mL then a 25-gauge Quincke-type spinal needle advanced slowly under fluoroscopy and placed in the posterior and inferior border of the right sacroiliac joint, placement confirmed with AP and lateral view, and after appropriate needle placement confirmed and after negative aspiration for heme and CSF and there was , 2 ml of ropivacaine 0.5% and 40 mg of Kenalog injected after negative aspiration, no paresthesia during the injection, no resistance to injection, and the needle was removed. Patient tolerated the procedure well without any complication. The patient returned to supine position after the back was cleaned and a Band- Aid applied, the patient transported to recovery room in stable condition and he was monitored for 30 minutes before he was discharged home and then patient was reexamined before going home and patient was discharged in stable condition and patient will follow up with the pain clinic in a few weeks
[2021-04-24] MEDS ORDERED: IV FLUID CONTINUATION 1,000 ML IV ONE (09:28)
[2021-04-24 09:46] VITALS: BP 140/84; PULSE 62
--- NOTE | 2021-04-24 13:02 | FL ---
Fluoroscopy HISTORY: Pain 5 seconds fluoroscopy time supplied to the referring clinician. 1 intraoperative C-arm images docume nt the procedure. See dictated report from anesthesia.
== END 2021-04-24 10:06 | disposition home or self-care (01) ==
LOC: ORPAIN 08:06
PROVIDERS: ATTEND Anesthesiology
DX: G89.29 Other chronic pain (principal); M47.817 Spondylosis without myelopathy or radiculopathy, lumbosacral region; M46.1 Sacroiliitis, not elsewhere classified
CPT/HCPCS: J2250; J3301; Q9966; J2795; G0260; 27096

== ENCOUNTER → 2022-08-08 | Outpatient (CLI) | payer MEDICARE ==
[2022-08-08 14:52] VITALS: BP 141/86; PULSE 65; RESP 18; TEMP 97.3
--- NOTE | 2022-08-08 15:06 | P.PAINPG ---
PQRS Measure Charge Sheet Comment: A 61 yr old male with a history of severe and chronic low back pain secondary to lumbar degenerative disc diseases and lumbar spondylosis with facet arthropathy without myelopathy presents today for LBP. Pain level is currently at 7/10 in intensity, constant, localized in the R lower lumbar spine, dull/ ac hy/ sharp/ shooting towards RLE. Pain is provoked by standing, lifting. Pain is alleviated with PT in 2020, home exercise as tolerated, massage integrated w PT, chiropractic treatments provided but stopped due to RLE pain, heat, ice, medications (Coward, Mobic), topicals, repositioning and rest. Pt stated he received 40% pain relief x 4 wks w his last R SI injection in 2020. Interventional pain procedures completed include R SI, LESIs Patient is currently on Coward, Mobic Patient denies any side effects of the medication(s), denies excessive drowsiness or sleepiness, denies suicidal ideation and reports that the current pain medication is helping to control the pain and improve activities of daily living. Patient denies any motor or sensory deficits. Patient denies any fever or night sweats, denies any change in the bowel movements or urination. Physical Examination: -Constitutional: Cooperative. Not in acute distress . - Neurologic: Cranial nerve II to XII intact. No focal neurological deficits. - Psychatric: Alert & oriented x 3. Matching mood & appropriate affect. Judgment and insight intact. - Musculoskeletal: Cervical spine: Muscle bulk/ tone/ strength in the bilateral upper extremities normal Vertebral body tenderness to palpation over Spurling test positive Distraction test positive Facet loading test positive Thoracic spine Muscle bulk / tone/ strength in the bilateral paraspinal muscles normal Vertebral body tender to palpation over Facet loading test positive Lumbar spine: Motor bulk/ tone/ strength lower extremities , thigh and legs : 5/5 Deep tendon reflexes : Normal Knee Jerk. Normal Ankle Jerk . Vertebral body tenderness to palpation over L5 Lumbar Facet Loading Test positive Straight Leg Raise: positive at 30 degrees right side/ left side Gaenslen's Test positive Sacral spine : Severe tenderness over the Sacroiliac joint: right side / left side Range of motion: Flexion of the lumbar spine <60 degrees Range of motion: Extension of the lumbar spine <20 degrees Gaenslen's Test positive Ray's Test positive Tato test: positive right side / left side Thigh Thrust Test Sacral Thrust Test Assessment and plan: Chronic low back pain secondary to lumbar degenerative disc disease , lumbar spondylosis with facet arthropathy without myelopathy Recommendation of ANABELL L5-S1. May need a series, up to 3 within a 6 mo period, for optimal pain relief. Risks, benefits of procedure discussed and pt verbalized understanding. Admits to anticoagulant use or medical history of diabetes. Protocol for discontinuation/ continuation of medications lucretia procedure discussed. All patient questions answered I have spent less than 30 minutes on patient care today. Dr Benson was available by phone for the evaluation of this patient. The time was used to re view the medical records including relevant urine studies and Prescription history (MAPs), review of the available imaging, evaluation and examination of the patient, coordination of care with the medical staff and if applicable referring physicians, as well as creation of the medical record PQRS Narrative: Smoking Status Current every day smoker Hx Alcohol Use (MH) Yes: Rare Home Medications: Ambulatory Orders ALPRAZolam [Xanax] 1 mg PO DAILY PRN 03/27/15 Metoprolol Tartrate [Lopressor] 50 mg PO BID #60 tab 07/26/18 HYDROcodone/APAP 10-325MG [Coward 10-325] 1 tab PO Q6HR PRN 10/09/20 methocarbamoL [Robaxin] 500 mg PO QID PRN 10/09/20 Ibuprofen [Motrin] 800 mg PO Q8HR PRN 12/12/20 Amoxicillin 500 mg PO Q8H PRN 04/23/21 Bacitracin/Polymyxin B Sulfate [Polysporin Ointment] 1 applic TOPICAL DIRECTED PRN 04/23/21 Controlled Substance Measures - Controlled Substance Measures Is patient prescribed a controlled substance at discharge?: No
== END | disposition home or self-care (01) ==
LOC: PNWHC3 13:33
PROVIDERS: ATTEND Specialist
DX: M47.896 Other spondylosis, lumbar region (principal); M51.36 Other intervertebral disc degeneration, lumbar region
CPT/HCPCS: 99211

== ENCOUNTER 2022-09-12 11:56 | Day surgery (SDC) | payer MEDICARE ==
[2022-09-10 15:00] VITALS: BMI 37.5
[~2022-09-12 11:56] MED LIST changes: +LACTATED RINGERS 1,000 ML IV SCH; +LIDOCAINE 1% (10MG/ML) FOR IV START INTRADERMA PRN; -ROPIVACAINE 5MG/ML 20ML VIAL ONE; -TRIAMCINOLONE ACETONIDE 40 MG/ML 1 ML VIAL ONE
[2022-09-12 12:47] VITALS: RESP 16; TEMP 97
[2022-09-12] MEDS ORDERED: IOPAMIDOL M200 10 ML VIAL ONE (13:20)
[2022-09-12] MEDS ORDERED: methylPREDNISolone ACETATE 80 MG/ML 1 ML VIAL ONE (13:20)
[2022-09-12] MEDS ORDERED: MIDAZOLAM 2 MG/2 ML VIAL ONE (13:20)
[2022-09-12] MEDS ORDERED: fentaNYL (PF) 50 MCG/ML 2 ML AMP ONE (13:20)
--- NOTE | 2022-09-12 13:38 | P.PCN ---
Date of Procedure: 09/12/22 Procedure(s) Performed: PREOPERATIVE DIAGNOSIS: 1- Lumbar Degenerative Disc Diseases 2-Lumbar spondylosis with Facet arthropathy without myelopathy. POSTOPERATIVE DIAGNOSIS: Same as preop diagnosis. PROCEDURE 1. Lumbar epidural steroid injection under fluoroscopic guidance at the L5-S1 level. (Fluoroscopy imaging was available in radiology department) 2. Lumbar epidurogram. ANESTHESIA: moderate sedation with intravenous Versed 2 mg ,and fentanyle 100 Mcg Sedation start time : 1328 Sedation end time : 1333 EBL: Minimal PROCEDURE INDICATION: The patient with low back pain and radiculitis symptoms unresponsive to conservative treatment. Fluoroscopy was used to optimize visualization of the needle placement and to maximize safety. PROCEDURE DESCRIPTION / TECHNIQUE: The patient was seen and identified in the preoperative area. Risks, benefits, complications including but not limited to infections ,bleeding ,allergic reaction to the medications ,nerve damage and not complete pain releife , and al ternatives were discussed with the patient. The patient agreed to proceed with the procedure and signed the consent. IV was started, and vital signs were stable. Patient was taken to the OR and time out was completed. The patient was placed in the prone position on procedure table and a pillow was placed under the abdomen to reduce lumbar lordosis. The lumbosacral area was prepped and draped in the usual sterile fashion.ere closely monitored during the procedure. Conscious sedation was used during the procedure to decrease patients anxiety. Vital signs was monitered during the entire procedure. Using anterior-posterior fluoroscopy, the L5-S1 interlaminar space was identified and the skin over this site was marked and then infiltrated with 1% lidocaine subcutaneously. Subsequently, a 20-gauge Tuohy epidural needle was inserted and advanced toward the epidural space using the ``Loss of resistance technique and guided by AP and lateral fluoroscopy. The correct needle position in the epidural space was verified with the injection of 2 mL of the water soluble contrast dye Isovue 200 contrast and observing an excellent epidurogram with the epidural spread of the dye, after negative aspiration for blood and CSF and in the absence of paresthesias. Again after negative aspiration, a 6 ml mixture containing 80 mg of Depo-medrol ( Preservetive Free ), and 2 ml of preservative free Normal Saline, and 2 ml of preservative free lidocaine 1% solution was injected and a washout of epidurogram was seen. Needle was withdrawn intact, skin was cleansed, and bandages were applied. COMPLICATIONS: None DISPOSITION / PLANS: The patient was placed in a supine position and transferred to the recovery area in a stable condition for observation. There was no evidence of lower extremity motor or sensory deficit after the procedure. Patient was discharged from the recovery room after meeting discharge criteria. Home discharge instructions were given to the patient by the staff. The patient was reexamined prior to discharge. The patient will schedule a follow up in the clinic in 2-4 weeks.
[2022-09-12] MEDS ORDERED: IV FLUID CONTINUATION 1,000 ML IV ONE (13:40)
[2022-09-12 13:45] VITALS: PULSE 60
--- NOTE | 2022-09-12 14:09 | FL ---
EXAMINATION TYPE: FL guided pain mgmt statistic DATE OF EXAM: 09/12/2022 HISTORY: Fluoroscopy time 1 seconds of fluoroscopy provided. IMPRESSION: 1. Fluoroscopy time.
[2022-09-12 14:13] VITALS: BP 154/76
== END 2022-09-12 14:15 | disposition home or self-care (01) ==
LOC: ORPAIN 11:56
PROVIDERS: ATTEND Specialist
DX: M51.16 Intervertebral disc disorders with radiculopathy, lumbar region (principal); M47.26 Other spondylosis with radiculopathy, lumbar region
CPT/HCPCS: 62323; J2250; J1040; J3010; Q9966

== ENCOUNTER → 2022-09-26 | Outpatient (CLI) | payer MEDICARE ==
--- NOTE | 2022-09-26 11:40 | P.PAINPG ---
Subjective Progress Note Date: 09/26/22 Principal diagnosis: Lumbar back pain Mr. Garcia is a 61-year-old pleasant Male came to the [facility] pain clinic follow-up visit L5-S1 epidural steroid injection evaluation. Patient has ongoing pain for more than 20 years . Patient describes pain is aching, throbbing, constant type of pain. Pain is radiating to sometimes his pain is radiating to right lower extremity. After L5-S1 epidural steroid injection his pain improved, and not radiating to his lower extremity. Patient rated pain levels are 6 out of 10 in severity. With the help of medications pain levels are 4-7 out of 10 in severity. Activities making pain worse. Medications, resting, interventional procedures helping in relieving patient's pain. Patient pain some days better than others. Overall activities decreased secondary to pain. He is actively doing exercises as tolerated at home. Denied any side effects with the medications. Denied any bowel or bladder problems at this time. He denied using any walking aids at this time. Patient denies any suicidal or homicidal ideations intent or plan. Patient denies any auditory or visual hallucinations. Patient denied any red flag symptoms related to pain. Objective - Exam General: Well-developed, well-nourished, no acute distress HEENT: Normocephalic, and atraumatic Neck: Supple, no neck swelling Psychiatric: Appropriate mood, and affect UPTWIST SPINNER: No focal neurological deficits Musculoskeletal: Upper extremity: Normal strength, and range of motion. Sensation grossly intact Lower extremity: Normal strength, and decreased range of motion secondary to pain Lumbar spine: Paravertebral tenderness: positive Lumbar facet load test : positive Strait leg raising test: Negative Sacroiliac joint tenderness: Positive on right-sided Thigh thrust test: Positive on right side SI joint compression test: Positive on right side Fabere test: Positive on right side [ ] - Constitutional Constitutional Comment(s): 12 point review of symptoms negative except as mentioned in the history of present illness Assessment and Plan Assessment: Lumbar spondylosis without myelopathy Lumbar radiculopathy Myofascial pain syndrome , and chronic pain syndrome Sacroiliac joint dysfunction- right side Plan: #1 Diagnoses, prognosis, and multiple treatment options including but not limited to physical therapy, interventional therapy, adjunct medication therapy, narcotic medication, and surgical options were discussed with the patient. And all questions were answered to the patient's satisfaction. #2 treatment plan agreement : Patient was thoroughly discussed regarding the treatment options, alternatives, and importance of exercises as tolerated. Patient clearly understood. #3 Patient was counseled on importance of regular exercise. Including king chi, aerobic exercises as tolerated. Which helps for chronic pain, and overall well- being. He was counseled regarding importance of quitting smoking and control of smoking in chronic pain control. #4 investigations: MAPS- reviewed , urine drug test- none #5 diagnostic tests: None #6 consultation : None # 7 interventional procedures: L5-S1 epidural straight injection #2 . Procedure, complications, alternatives discussed with the patient. #8 medications #1 Motrin, and Tylenol as needed. Tylenol total dose not more than 2 g per day #9 morphine milligrams equivalents dose ( MME) per day: 0 from the pain clinic. # 10 TENS unit's, and percussion massage device #11 disposition: scheduled to follow up with pain clinic in in 4-8 weeks duration. Time with Patient: Less than 30 PQRS Measure Charge Sheet Measure #130: Documentation of Current Meds in Medical Chart: Patient's medications documented in chart Measure #226: Tobacco Use: Screen & Cessation Intervention: Pt screened for tobacco use AND intervention given Measure #111: Pneumonia Vaccination: Pneumococcal vaccine NOT administered or previously given Measure #47: Advance Care Plan: Advance care planning discussed & documented, pt chose/unable to give Measure #412: Opioid Treatment Agreement: No documentation of signed opioid gibson tment agreement Measure #408: Opioid Therapy Follow-up Evaluation: Patient had NO f/u eval minimum every 3 months during opioid therapy Measure #317: Preventitive Care & Scrn High Bld Press & F/U: Pre-hypertensive or hypertensive BP documented, pt will f/u with PCP Measure #128: Body Mass Index (BMI) Screening & Follow-up: BMI documented ABOVE normal parameters - f/u documented Measure #131: Pain Assessment & Follow-up: Pain positive & plan documented Measure #431: Unhealthy Alcohol Use Preventative Care & Scrn: Patient not identified as an unhealthy alcohol user PQRS Narrative: Smoking Status Current every day smoker Hx Alcohol Use (MH) Yes: Rare Home Medications: Ambulatory Orders ALPRAZolam [Xanax] 1 mg PO DAILY PRN 03/27/15 Metoprolol Tartrate [Lopressor] 50 mg PO BID #60 tab 07/26/18 HYDROcodone/APAP 10-325MG [[place] 10-325] 1 tab PO Q6HR PRN 10/09/20 Atorvastatin [Lipitor] 20 mg PO HS 09/10/22 Meloxicam [Mobic] 15 mg PO DAILY 09/10/22 Promethazine 6.25MG/5Ml [Phenergan Syrup] 5 ml PO HS 09/10/22 Tamsulosin [Flomax] 0.4 mg PO DAILY 09/10/22 Controlled Substance Measures - Controlled Substance Measures Is patient prescribed a controlled substance at discharge?: No
[2022-09-26 11:44] VITALS: BP 165/104; PULSE 66; RESP 18; TEMP 98
== END ==
LOC: PNWHC3 11:18
DX: M47.26 Other spondylosis with radiculopathy, lumbar region (principal); M79.10 Myalgia, unspecified site; G89.4 Chronic pain syndrome; M46.1 Sacroiliitis, not elsewhere classified; F17.200 Nicotine dependence, unspecified, uncomplicated
CPT/HCPCS: 99211

== ENCOUNTER 2022-10-22 13:10 | Day surgery (SDC) | payer MEDICARE ==
[2022-10-22 13:39] VITALS: RESP 16; TEMP 97.9
[2022-10-22] MEDS ORDERED: fentaNYL (PF) 50 MCG/ML 2 ML AMP ONE (13:46)
[2022-10-22] MEDS ORDERED: MIDAZOLAM 2 MG/2 ML VIAL ONE (13:46)
[2022-10-22] MEDS ORDERED: methylPREDNISolone ACETATE 80 MG/ML 1 ML VIAL ONE (13:46)
[2022-10-22] MEDS ORDERED: IOPAMIDOL M200 10 ML VIAL ONE (13:46)
--- NOTE | 2022-10-22 13:54 | P.PCN ---
Date of Procedure: 10/22/22 Procedure(s) Performed: PREOPERATIVE DIAGNOSIS: 1- Lumbar Degenerative Disc Diseases 2-Lumbar spondylosis with Facet arthropathy without myelopathy. 3-lumbar radiculopathy POSTOPERATIVE DIAGNOSIS: Same as preop diagnosis. PROCEDURE 1. Lumbar epidural steroid injection under fluoroscopic guidance at the L5-S1 level. (Fluoroscopy imaging was available in radiology department) 2. Lumbar epidurogram. ANESTHESIA: moderate sedation with intravenous Versed 2 mg ,and fentanyle 100 Mcg Sedation start time : 1348 Sedation end time : 1353 EBL: Minimal PROCEDURE INDICATION: The patient with low back pain and radiculitis symptoms unresponsive to conservative treatment. Fluoroscopy was used to optimize visualization of the needle placement and to maximize safety. PROCEDURE DESCRIPTION / TECHNIQUE: The patient was seen and identified in the preoperative area. Risks, benefits, complications including but not limited to infections ,bleeding ,allergic reaction to the medications ,nerve damage and not complete pain releife , and alternatives were discussed with the patient. The patient agreed to proceed with the procedure and signed the consent. IV was started, and vital signs were stable. Patient was taken to the OR and time out was completed. The patient was placed in the prone position on procedure table and a pillow was placed under the abdomen to reduce lumbar lordosis. The lumbosacral area was prepped and draped in the usual sterile fashion.ere closely monitored during the procedure. Conscious sedation was used during the procedure to decrease patients anxiety. Vital signs was monitered during the entire procedure. Using anterior-posterior fluoroscopy, the L5-S1 interlaminar space was identified and the skin over this site was marked and then infiltrated with 1% lidocaine subcutaneously. Subsequently, a 20-gauge Tuohy epidural needle was inserted and advanced toward the epidural space using the ``Loss of resistance technique and guided by AP and lateral fluoroscopy. The correct needle position in the epidural space was verified with the injection of 2 mL of the water soluble contrast dye Isovue 200 contrast and observing an excellent epidurogram with the epidural spread of the dye, after negative aspiration for blood and CSF and in the absence of paresthesias. Again after negative aspiration, a 6 ml mixture containing 80 mg of Depo-medrol ( Preservetive Free ), and 2 ml of preservative free Normal Saline, and 2 ml of preservative free lidocaine 1% solution was injected and a washout of epidurogram was seen. Needle was withdrawn intact, skin was cleansed, and bandages were applied. COMPLICATIONS: None DISPOSITION / PLANS: The patient was placed in a supine position and transferred to the recovery area in a stable condition for observation. There was no evide nce of lower extremity motor or sensory deficit after the procedure. Patient was discharged from the recovery room after meeting discharge criteria. Home discharge instructions were given to the patient by the staff. The patient was reexamined prior to discharge. The patient will schedule a follow up in the clinic in 2-4 weeks.
--- NOTE | 2022-10-22 14:02 | FL ---
Intraoperative/procedural fluoroscopic services were provided for lumbar epidural steroid injection. Total fluoroscopy time is 1 second with a total of 1 submitted image to PACS. Please see the operativ e note for further details.
[2022-10-22] MEDS ORDERED: IV FLUID CONTINUATION 800 ML IV ONE (14:05)
[2022-10-22 14:28] VITALS: BP 157/80; PULSE 64
== END 2022-10-22 14:35 | disposition home or self-care (01) ==
LOC: ORPAIN 13:10
PROVIDERS: ATTEND Specialist
DX: M51.16 Intervertebral disc disorders with radiculopathy, lumbar region (principal); M47.26 Other spondylosis with radiculopathy, lumbar region
CPT/HCPCS: 62323; J2250; J1040; J3010; Q9966